=== PATIENT | female | born 1970 | race Hispanic/Latino ===

== ENCOUNTER 2017-10-05 08:12 | Outpatient (CLI) | payer BC | END 2017-10-05 08:13 | disposition home or self-care (01) | LOC: BICULT 08:12 | PROVIDERS: ATTEND Family Medicine | DX: K80.20 Calculus of gallbladder without cholecystitis without obstruction (principal) | CPT/HCPCS: 76705 ==

== ENCOUNTER 2017-11-06 08:11 | Outpatient (CLI) | payer BC ==
[2017-11-06] MEDS ORDERED: Iopamidol 370 76% 100 ML VIAL ONE (09:00)
--- NOTE | 2017-11-06 10:56 | CT ---
CT ABDOMEN AND PELVIS WITH IV AND ORAL CONTRAST: HISTORY: Postprandial abdominal pain. FINDINGS: Lung bases are clear. The liver, spleen, kidneys, adrenal glands, and pancreas have a normal CT appe arance. Nonenlarged, nonspecific lymph nodes are scattered about the mesentery and retroperitoneum. Urinary bladder is incompletely distended. Appendix not well delineated. No inflammation. A large amount of stool throughout the colon. IMPRESSION: Constipation. No acute abnormalities are demonstrated. POS: [facility]
== END 2017-11-06 08:12 | disposition home or self-care (01) ==
LOC: SCSCT 08:11
PROVIDERS: ATTEND Internal Medicine
DX: R07.9 Chest pain, unspecified (principal); R07.81 Pleurodynia; K59.00 Constipation, unspecified
CPT/HCPCS: 74160

== ENCOUNTER 2019-10-20 08:49 | Outpatient (CLI) | payer BC | END 2019-10-20 08:50 | disposition home or self-care (01) | LOC: CTENTCT 08:49 | PROVIDERS: ATTEND Student in an Organized Health Care Education/Training Program | DX: J32.9 Chronic sinusitis, unspecified (principal) | CPT/HCPCS: 70486 ==

== ENCOUNTER 2020-05-05 07:44 | Outpatient (CLI) | payer BC | END 2020-05-05 07:45 | disposition home or self-care (01) | LOC: BICULT 07:44 | PROVIDERS: ATTEND Obstetrics & Gynecology | DX: N93.9 Abnormal uterine and vaginal bleeding, unspecified (principal) | CPT/HCPCS: 76856 ==

== ENCOUNTER 2020-05-05 07:46 | Outpatient (CLI) | payer BC | END 2020-05-05 07:47 | disposition home or self-care (01) | LOC: BICMAMMO 07:46 | PROVIDERS: ATTEND Obstetrics & Gynecology | DX: Z12.31 Encounter for screening mammogram for malignant neoplasm of breast (principal) | CPT/HCPCS: 77063; 77067 ==

== ENCOUNTER 2020-05-17 08:28 | Day surgery (SDC) | payer BC ==
[2020-05-17] MEDS ORDERED: Acetaminophen 500 MG TAB PO PRN (08:40)
[2020-05-17] MEDS ORDERED: Iron Sucrose Complex 250 MG in Sodium Chloride 0.9% 250 ML 250 ML IVPB SCH (08:45)
[2020-05-17 09:27] VITALS: BP 110/57; TEMP 98.7
== END 2020-05-17 10:39 | disposition home or self-care (01) ==
LOC: ONC/OP 08:28
PROVIDERS: ATTEND Student in an Organized Health Care Education/Training Program
DX: D50.9 Iron deficiency anemia, unspecified (principal); N93.9 Abnormal uterine and vaginal bleeding, unspecified
CPT/HCPCS: 96365; J1756; J7050

== ENCOUNTER 2021-01-24 07:34 | Outpatient (CLI) | payer BC | END 2021-01-24 07:35 | disposition home or self-care (01) | LOC: BICULT 07:34 | PROVIDERS: ATTEND Nurse Practitioner Family | DX: N39.0 Urinary tract infection, site not specified (principal) | CPT/HCPCS: 76770 ==

== ENCOUNTER 2021-04-05 09:26 | Outpatient (CLI) | payer BC ==
[~2021-04-05 09:26] MED LIST: Magnevist 469MG/ML 20 ML VIAL ONE
== END 2021-04-05 09:27 | disposition home or self-care (01) ==
LOC: MRI 09:26
DX: N93.9 Abnormal uterine and vaginal bleeding, unspecified (principal); N88.8 Other specified noninflammatory disorders of cervix uteri
CPT/HCPCS: 72197